=== PATIENT | male | born 1990 ===

== ENCOUNTER 2019-04-07 20:55 | Emergency (ER) ==
--- NOTE | 2019-04-07 22:10 | RADIOLOGY REPORT (SQ) ---
EXAM DESCRIPTION: XR WRIST 3 OR MORE VIEWS COMPLETED DATE/TME: 04/07/2019 00:00 CLINICAL HISTORY: 28 years, Male, bone tenderness COMPARISON: None. NUMBER OF VIEWS: 3 TECHNIQUE: 3 view left wrist LIMITATIONS: None. FINDINGS: Negative for fracture or dislocation. Soft tissues are unremarkable IMPRESSION: Negative exam copyright 2010 [employer]- All Rights Reserved
--- NOTE | 2019-04-07 22:11 | RADIOLOGY REPORT (SQ) ---
EXAM DESCRIPTION: XR ELBOW 3 VIEWS COMPLETED DATE/TME: 04/07/2019 21:17 CLINICAL HISTORY: 28 years, Male, bone tenderness COMPARISON: None. NUMBER OF VIEWS: 4 TECHNIQUE: 4 view left elbow LIMITATIONS: None. FINDINGS: Posterior dislocation of the olecranon relative to the distal humerus. Associated soft tissue changes. No discrete fracture. IMPRESSION: Posterior elbow dislocation copyright 2010 [email or web address]- All Rights Reserved
== END 2019-04-07 21:55 | disposition left against medical advice (07) ==
LOC: ER 20:55
DX: Z53.21 Procedure and treatment not carried out due to patient leaving prior to being seen by health care provider (principal)